=== PATIENT | female | born 1990 | race Caucasian/White ===

== ENCOUNTER → 2017-05-30 | Outpatient (CLI) | payer BC, OTHER | END | disposition home or self-care (01) | LOC: GMAJ 11:28 | PROVIDERS: ATTEND Family Medicine | DX: E03.0 Congenital hypothyroidism with diffuse goiter (principal) ==

== ENCOUNTER → 2017-05-30 | Outpatient (CLI) | payer BC, OTHER ==
--- NOTE | 2017-05-31 14:49 | US ---
EXAM DESCRIPTION: Abdomen,Complete CLINICAL HISTORY: ELEVATED LFT'S COMPARISON: None Available. TECHNIQUE: Transabdominal scannin-dimensional modes. FINDINGS: The gallbladder is surgically absent Common bile duct caliber 4.6 mm which is within normal limits. No stones in the visualized portion of the duct. Not tender with transducer pressure. The liver demonstrates increased echogenicity; contour of the liver capsule is smooth where seen. No fluid around the liver. Intrahepatic biliary ducts are non-dilated. Craniocaudal dimension in the mid-clavicular axis is 17.1 cm. Pancreas head, body, and tail normal in size and echogenicity. Pancreatic duct is not dilated. Abdominal aorta diameter proximal 1.7 cm. Mid 1.6 cm. Distal 1.5 cm. IVC visualized; normal caliber. Spleen normal echogenicity; long axis measurement is 11.8 cm. No fluid in the spleno-renal fossa. Right kidney measures 11.0 x 5.9 x 5.8 cm. Mid renal cortical thickness 1.5 cm. Echogenicity normal with no hydronephrosis, no large calcifications, and no perinephric fluid. Contour smooth. Vascularity not evaluated.. Ureter not visualized. Left kidney measures 9.5 x 6.4 x 6.3cm. Mid renal cortical thickness 1.8 cm. Echogenicity normal with no hydronephrosis, no large calcifications, and no perinephric fluid. Contour smooth. Vascularity not evaluated. Ureter not visualized. IMPRESSION: 1. Gallbladder surgically removed. No fluid in the gallbladder fossa. Common bile duct nondilated. 2. Possible fatty infiltration of the liver and mild hepatomegaly. This can be associated with obesity and a variety of metabolic and toxic conditions. No ascites. 3. Normal ultrasound of the pancreas spleen and kidneys. Normal caliber of the abdominal aorta. Electronically signed by: Edson Wallace MD 05/31/2017 2:48 PM CDT Workstation: [id number]
== END | disposition home or self-care (01) ==
LOC: US 14:02
PROVIDERS: ATTEND Family Medicine
DX: R94.5 Abnormal results of liver function studies (principal)